=== PATIENT | female | born 1985 | race American Indian/Alaskan Native ===

== ENCOUNTER 2018-11-05 00:54 | Emergency (ER) | payer MEDICAID ==
[2018-11-05 01:51] LABS: Basophils % (Auto) 0.4 % (0.0-1.8); Eosinophils # (Auto) 0.5 K/mm3 (0.0-0.4); Eosinophils % (Auto) 5.7 % (0.0-4.3); Hematocrit 33.6 % (30.3-42.9); Hemoglobin 11.6 gm/dl (10.1-14.3); Lymphocytes # (Auto) 2.2 K/mm3 (1.2-5.4); Lymphocytes % (Auto) 23.5 % (13.4-35.0); Mean Corpuscular HGB Conc 34 % (30-34); Mean Corpuscular Volume 90 fl (79-97); Monocytes # (Auto) 0.6 K/mm3 (0.0-0.8); Monocytes % (Auto) 6.8 % (0.0-7.3); Platelet Count 261 K/mm3 (140-440); Red Blood Count 3.73 M/mm3 (3.65-5.03); Red Cell Distribution Width 13.8 % (13.2-15.2)
[2018-11-05 02:02] LABS: Bilirubin,Urine NEG (Negative); Blood,Urine MOD (Negative); Color,Urine Yellow (Yellow); Protein,Urine <15 mg/dL mg/dL (Negative); Urobilinogen,Urine < 2.0 mg/dL (<2.0)
--- NOTE | 2018-11-05 03:30 | Emergency Department Report ---
ED HPI - General Chief complaint: Vaginal Bleeding Stated complaint: 19WEEKS PREG AND BLEEDING Time Seen by Provider: 11/05/18 02:52 Source: patient, family Mode of arrival: Ambulatory Limitations: No Limitations - History of Present Illness Initial comments: patient is a 33-year-old female who presents to the emergency room with complaints of vaginal spotting that began yesterday. She states initially it started as a pink color but now has turned red. Denies any heavy bleeding or passing clots. She denies any dysuria, abdominal pain, nausea, vomiting, diarrhea, fever. Patient is currently 19 weeks . She states she has been seeing OB for this . she denies any past medical history or allergies to medications. /P:1/A:1 - Related Data Previous Rx's Medication Instructions Recorded Last Taken Type cephALEXin [Keflex] 500 mg PO BID 7 Days #14 cap 11/05/18 Unknown Rx Allergies Allergy/AdvReac Type Severity Reaction Status Date / Time No Known Allergies Allergy Unverified 11/05/18 01:10 ED Review of Systems ROS: Stated complaint: 19WEEKS PREG AND BLEEDING Other details as noted in HPI Comment: All other systems reviewed and negative ED Past Medical Hx - Past Medical History Previous Medical History?: Yes Hx Asthma: Yes - Surgical History Past Surgical History?: Yes Additional Surgical History: C-Sec - Social History Smoking Status: Former Smoker Substance Use Type: None - Medications Home Medications: Home Medications Medication Instructions Recorded Confirmed Last Taken Type cephALEXin [Keflex] 500 mg PO BID 7 Days #14 cap 11/05/18 Unknown Rx ED Physical Exam - General Limitations: No Limitations General appearance: alert, in no apparent distress - Head Head exam: Present: atraumatic, normocephalic - Eye Eye exam: Present: normal appearance, PERRL - ENT ENT exam: Present: mucous membranes moist - Respiratory Respiratory exam: Present: normal lung sounds bilaterally. Absent: respiratory distress, wheezes, rales, rhonchi, stridor, chest wall tenderness, accessory muscle use, decreased breath sounds, prolonged expiratory - Cardiovascular Cardiovascular Exam: Present: regular rate, normal rhythm, normal heart sounds. Absent: systolic murmur, diastolic murmur, rubs, gallop - GI/Abdominal GI/Abdominal exam: Present: soft, normal bowel sounds, other (gravid). Absent: tenderness, guarding, rebound, rigid - Back Exam Back exam: Absent: CVA tenderness (R), CVA tenderness (L) - Neurological Exam Neurological exam: Present: alert, oriented X3 - Psychiatric Psychiatric exam: Present: normal affect, normal mood - Skin Skin exam: Present: warm, dry, intact ED Course Vital Signs 11/05/18 04:59 Temperature 98.4 F Pulse Rate 93 H Respiratory 16 Rate Blood Pressure 115/79 [Left] O2 Sat by Pulse 100 Oximetry ED Medical Decision Making - Lab Data Result diagrams: 11/05/18 01:38 Lab Results 11/05/18 11/05/18 11/05/18 Range/Units 01:30 01:38 01:38 WBC 9.3 (4.5-11.0) K/mm3 RBC 3.73 (3.65-5.03) M/mm3 Hgb 11.6 (10.1-14.3) gm/dl Hct 33.6 (30.3-42.9) % MCV 90 (79-97) fl MCH 31 (28-32) pg MCHC 34 (30-34) % RDW 13.8 (13.2-15.2) % Plt Count 261 (140-440) K/mm3 Lymph % (Auto) 23.5 (13.4-35.0) % [place] % (Auto) 6.8 (0.0-7.3) % Eos % (Auto) 5.7 H (0.0-4.3) % Baso % (Auto) 0.4 (0.0-1.8) % Lymph # 2.2 (1.2-5.4) K/mm3 [place] # 0.6 (0.0-0.8) K/mm3 Eos # 0.5 H (0.0-0.4) K/mm3 Baso # 0.0 (0.0-0.1) K/mm3 Seg Neutrophils % 63.6 (40.0-70.0) % Seg Neutrophils # 5.9 (1.8-7.7) K/mm3 HCG, Quant 07977 H (0-4) mIU/mL Urine Color Yellow (Yellow) Urine Turbidity Clear (Clear) Urine pH 8.0 H (5.0-7.0) Ur Specific [place] 1.012 (1.003-1.030) Urine Protein <15 mg/dl (Negative) mg/dL Urine Glucose (UA) Neg (Negative) mg/dL Urine Ketones Neg (Negative) mg/dL Urine Blood Mod (Negative) Urine Nitrite Neg (Negative) Urine Bilirubin Neg (Negative) Urine Urobilinogen < 2.0 (<2.0) mg/dL Ur Leukocyte Esterase Lg (Negative) Urine WBC (Auto) 20.0 H (0.0-6.0) /HPF Urine RBC (Auto) 1.0 (0.0-6.0) /HPF U Epithel Cells (Auto) 2.0 (0-13.0) /HPF Blood Type 11/05/18 Range/Units 01:38 WBC (4.5-11.0) K/mm3 RBC (3.65-5.03) M/mm3 Hgb (10.1-14.3) gm/dl Hct (30.3-42.9) % MCV (79-97) fl MCH (28-32) pg MCHC (30-34) % RDW (13.2-15.2) % Plt Count (140-440) K/mm3 Lymph % (Auto) (13.4-35.0) % [place] % (Auto) (0.0-7.3) % Eos % (Auto) (0.0-4.3) % Baso % (Auto) (0.0-1.8) % Lymph # (1.2-5.4) K/mm3 [place] # (0.0-0.8) K/mm3 Eos # (0.0-0.4) K/mm3 Baso # (0.0-0.1) K/mm3 Seg Neutrophils % (40.0-70.0) % Seg Neutrophils # (1.8-7.7) K/mm3 HCG, Quant (0-4) mIU/mL Urine Color (Yellow) Urine Turbidity (Clear) Urine pH (5.0-7.0) Ur Specific [place] (1.003-1.030) Urine Protein (Negative) mg/dL Urine Glucose (UA) (Negative) mg/dL Urine Ketones (Negative) mg/dL Urine Blood (Negative) Urine Nitrite (Negative) Urine Bilirubin (Negative) Urine Urobilinogen (<2.0) mg/dL Ur Leukocyte Esterase (Negative) Urine WBC (Auto) (0.0-6.0) /HPF Urine RBC (Auto) (0.0-6.0) /HPF U Epithel Cells (Auto) (0-13.0) /HPF Blood Type B POSITIVE - Radiology Data Radiology results: report reviewed OBSTETRIC ULTRASOUND INDICATION: Vaginal bleeding. COMPARISON: No prior relevant imaging studies are available for comparison. TECHNIQUE: Transabdominal imaging was performed. FINDINGS: Single viable intrauterine is identified. lie: Breech. Heart rate: 147 bpm. measurements are as follows: Biparietal diameter 3.4 cm, 16 weeks 4 days Head circumference 12.5 cm, 16 weeks 2 days Abdominal circumference 10.2 cm, 16 weeks 1 day Femur length 2.2 cm, 16 weeks 5 days Amniotic fluid index is within normal limits. There is a grade 0 anterior placenta. Cervix is closed measuring 3 cm. CONCLUSION: Single viable intrauterine currently in breech position has sonographic gestational age of 16 weeks, 3 days. No abnormalities are seen. Signer Name: Chema Mathew MD Signed: 11/05/2018 4:17 AM Workstation Name: [id number] Transcribed By: MARILUZ Dictated By: Chema Mathew MD Electronically Authenticated By: Chema Mathew MD Signed Date/Time: 11/05/18 5480 - Medical Decision Making patient is a 33-year-old female who presents to the emergency room with complaints of vaginal spotting that began yesterday. She states initially it started as a pink color but now has turned red. Denies any heavy bleeding or passing clots. She denies any dysuria, abdominal pain, nausea, vomiting, diarrhea, fever. Patient is currently 19 weeks . She states she has been seeing OB for this . she denies any past medical history or allergies to medications. /P:1/A:1. VSS. labs WNL. UA shows evidence of UTI. pt is B positive blood type. US shows Single viable intrauterine cur rently in breech position has sonographic gestational age of 16 weeks, 3 days. No abnormalities are seen. pt dx with threatened miscarriage and UTI. given prescription for keflex. advised to please take medication as prescribed. you will need to have repeat beta hCG Quant in 2 days. follow up with her [facility]IC[facility] in the next 2-3 days. Return to the emergency room for any new or worsening symptoms. Plenty of water and continue taking her daily vitamin. - Differential Diagnosis threatened , spontaneous , IUP, UTI, placenta abruption Critical care attestation.: If time is entered above; I have spent that time in minutes in the direct care of this critically ill patient, excluding procedure time. ED Disposition Clinical Impression: Threatened miscarriage UTI (urinary tract infection) Qualifiers: Urinary tract infection type: acute cystitis Hematuria presence: without hematuria Qualified Code(s): N30.00 - Acute cystitis without hematuria Disposition: TO HOME OR SELFCARE Is pt being admited?: No Does the pt Need Aspirin: No Condition: Stable Instructions: Threatened Miscarriage (ED), Urinary Tract Infection in Women (ED) Additional Instructions: Please take medication as prescribed. you will need to have repeat beta hCG Quant in 2 days. follow up with her [facility] in the next 2-3 days. Return to the emergency room for any new or worsening symptoms. Plenty of water and continue taking her daily vitamin. Prescriptions: cephALEXin [Keflex] 500 mg PO BID 7 Days #14 cap Referrals: your, [facility] [Other] - 2-3 Days Time of Disposition: 04:42 Print Language: [place]ET[place]ESE
--- NOTE | 2018-11-05 04:21 | Ultrasound Report ---
OBSTETRIC ULTRASOUND INDICATION: Vaginal bleeding. COMPARISON: No prior relevant imaging studies are available for comparison. TECHNIQUE: Transabdominal imaging was performed. FINDINGS: Single viable intrauterine is identified. lie: Breech. Heart rate: 147 bpm. measurements are as follows: Biparietal diameter 3.4 cm, 16 weeks 4 days Head circumference 12.5 cm, 16 weeks 2 days Abdominal circumference 10.2 cm, 16 weeks 1 day Femur length 2.2 cm, 16 weeks 5 days Amniotic fluid index is within normal limits. There is a grade 0 anterior placenta. Cervix is closed measuring 3 cm. CONCLUSION: Single viable intrauterine currently in breech position has sonographic gestational age of 16 weeks, 3 days. No abnormalities are seen. Signer Name: Chema Mathew MD Signed: 11/05/2018 4:17 AM Workstation Name: [id number]
[2018-11-05 05:01] VITALS: BP 115/79
== END 2018-11-05 04:59 | disposition home or self-care (01) ==
LOC: ED 00:54
DX: O20.0 Threatened abortion (principal); O23.42 Unspecified infection of urinary tract in pregnancy, second trimester; O99.512 Diseases of the respiratory system complicating pregnancy, second trimester; J45.909 Unspecified asthma, uncomplicated; Z87.891 Personal history of nicotine dependence; Z3A.16 16 weeks gestation of pregnancy
CPT/HCPCS: 36415; 76805; 81001; 84702; 85025; 86900; 86901; 87086

== ENCOUNTER 2018-12-13 09:07 | Outpatient (CLI) | payer MEDICAID ==
[2018-12-13 09:37] VITALS: BP 115/68
[2018-12-13] MEDS ORDERED: LACTATED RINGERS 500 ML IV ONE (10:41)
== END 2018-12-13 11:00 | disposition home or self-care (01) ==
LOC: TRG 09:07
PROVIDERS: ATTEND Obstetrics & Gynecology
DX: O47.02 False labor before 37 completed weeks of gestation, second trimester (principal); Z3A.27 27 weeks gestation of pregnancy
CPT/HCPCS: 59025